=== PATIENT | female | born 1980 | race Caucasian/White ===

== ENCOUNTER 2016-06-04 07:17 | Emergency (ER) | payer MEDICAID ==
[~2016-06-04] VITALS: Ht 170.2 cm; Wt 93.0 kg
[~2016-06-04 07:17] MED LIST: ACET-2178; IBUPROFEN OTC
[2016-06-04] MEDS ORDERED: TRAMADOL 50MG TABLET PO ONE (09:45)
[2016-06-04 11:33] VITALS: BP 131/82
== END 2016-06-04 11:34 | disposition home or self-care (01) ==
LOC: ER 07:43
DX: M54.5 Low back pain (principal); Z88.0 Allergy status to penicillin; Z88.6 Allergy status to analgesic agent; Z98.51 Tubal ligation status; W01.0XXA Fall on same level from slipping, tripping and stumbling without subsequent striking against object, initial encounter; Y93.89 Activity, other specified; Y92.512 Supermarket, store or market as the place of occurrence of the external cause
CPT/HCPCS: 99283; Z7610

== ENCOUNTER 2016-07-16 07:48 | Emergency (ER) | payer MEDICAID ==
[~2016-07-16] VITALS: Ht 165.1 cm; Wt 104.0 kg
[2016-07-16 08:05] VITALS: BP 130/72
[2016-07-16] MEDS ORDERED: ACETAMINOPHEN 325MG TABLET PO ONE (08:30)
== END 2016-07-16 08:41 | disposition home or self-care (01) ==
LOC: ER 08:17
DX: S30.1XXA Contusion of abdominal wall, initial encounter (principal); Z88.0 Allergy status to penicillin; Z98.51 Tubal ligation status; Z88.6 Allergy status to analgesic agent; W10.8XXA Fall (on) (from) other stairs and steps, initial encounter; Y93.89 Activity, other specified; Y92.018 Other place in single-family (private) house as the place of occurrence of the external cause
CPT/HCPCS: 99282

== ENCOUNTER 2016-08-22 14:22 | Emergency (ER) | payer MEDICAID ==
[~2016-08-22] VITALS: Ht 167.6 cm; Wt 104.0 kg
[2016-08-22] MEDS ORDERED: BACITRACIN ZINC OINT UDPKT TOP ONE ×2 (18:30→19:30)
[2016-08-22] MEDS ORDERED: LIDOCAINE HCL 1% 20ML VIAL (Pyxis) INJ INFIL ONE (18:30)
[2016-08-22] MEDS ORDERED: TETANUS, DIPHTHERIA, PERTUSSIS VAC/PF 0.5ML (>7YR OLD) IM ONE (18:30)
[2016-08-22] MEDS ORDERED: HYDROCODONE/ACETAMINOPHEN 5/325MG TABLET PO ONE (19:30)
[2016-08-22 19:58] VITALS: BP 128/74
[2016-08-23] MEDS ORDERED: CLINDAMYCIN HCL 150MG CAPSULE PO SCH
== END 2016-08-22 20:01 | disposition home or self-care (01) ==
LOC: ER 18:01
DX: L03.031 Cellulitis of right toe (principal); Z88.0 Allergy status to penicillin; Z88.6 Allergy status to analgesic agent; Z98.51 Tubal ligation status
CPT/HCPCS: 10060; 90471; 90715; 99283; J3490; X7700; Z7610

== ENCOUNTER 2016-08-28 06:09 | Emergency (ER) | payer MEDICAID ==
[~2016-08-28] VITALS: Ht 167.6 cm; Wt 91.0 kg
[2016-08-28] MEDS ORDERED: FAMOTIDINE 20MG/2ML VIAL IV STA (06:40)
[2016-08-28] MEDS ORDERED: SODIUM CHLORIDE 0.9% 1,000 ML IV ONE (06:40)
[2016-08-28] MEDS ORDERED: ONDANSETRON HCL 4MG/2ML VIAL IV STA (06:40)
[2016-08-28 07:09] LABS: CARBON DIOXIDE 29 mEq/L (21-32); CHLORIDE 104 mEq/L (98-107)
[2016-08-28 07:11] LABS: BASOPHILS % 0.7 % (0.0-2.0); EOSINOPHILS % 0.6 % (0.0-5.0); HEMATOCRIT. 36.4 % (36.0-48.0); HEMOGLOBIN. 12.6 g/dL (12.0-16.0); LYMPHOCYTES % 30.9 % (20.0-50.0); MEAN CORPUSCULAR HEMOGLOBIN 29.9 pg (28.0-32.0); MEAN CORPUSCULAR VOLUME 86.2 fL (81.0-99.0); MEAN PLATELET VOLUME 8.8 fl (7.4-10.4); MONOCYTES % 6.7 % (2.0-8.0); NEUTROPHILS % 61.1 % (40.0-76.0); PLATELET 363 x1000/uL (130-400); RED BLOOD CELL COUNT 4.22 mill/uL (4.2-5.4); RED CELL DISTRIBUTION WIDTH 14.9 % (11.6-14.6)
[2016-08-28 07:12] LABS: GLUCOSE URINE NEGATIVE (NEGATIVE); KETONES URINE NEGATIVE (NEGATIVE); LEUKOCYTE ESTERASE URINE 3+ (NEGATIVE); NITRITE URINE NEGATIVE (NEGATIVE); OCCULT BLOOD URINE 2+ (NEGATIVE); PH URINE 7.5 (4.5-8.0); PROTEIN URINE NEGATIVE (NEGATIVE); SPECIFIC GRAVITY URINE 1.016 (1.005-1.030)
[2016-08-28 07:14] LABS: CLARITY URINE HAZY (CLEAR); COLOR URINE YELLOW (YELLOW)
[2016-08-28 07:20] LABS: *BARBITURATES SCREEN URINE NEGATIVE (NEGATIVE); *BENZODIAZEPINES SCREEN URINE NEGATIVE (NEGATIVE); *COCAINE SCREEN URINE NEGATIVE (NEGATIVE); CANNABINOID URINE SCREEN NEGATIVE (NEGATIVE); METHADONE URINE SCREEN NEGATIVE (NEGATIVE); PHENCYCLIDINE URINE SCREEN NEGATIVE (NEGATIVE)
[2016-08-28 07:31] LABS: *AMPHETAMINES SCREEN URINE PRESUMTIVE POSITIVE (NEGATIVE); OPIATES URINE SCREEN PRESUMTIVE POSITIVE (NEGATIVE)
[2016-08-28] MEDS ORDERED: LEVOFLOXACIN 500MG TABLET PO ONE (08:00)
[2016-08-28 09:18] VITALS: BP 136/80
== END 2016-08-28 09:24 | disposition home or self-care (01) ==
LOC: ER 06:18
DX: N39.0 Urinary tract infection, site not specified (principal); I10 Essential (primary) hypertension; R73.9 Hyperglycemia, unspecified; Z68.32 Body mass index [BMI] 32.0-32.9, adult; E66.9 Obesity, unspecified; F11.10 Opioid abuse, uncomplicated; F15.10 Other stimulant abuse, uncomplicated; Z88.0 Allergy status to penicillin; Z88.6 Allergy status to analgesic agent; Z98.51 Tubal ligation status
CPT/HCPCS: 36415; 80053; 80305; 81001; 81025; 83690; 85025; 96361; 96374; 96375; 99285; J2405; J3490; J7030

== ENCOUNTER 2016-09-11 06:31 | Emergency (ER) | payer MEDICAID ==
[~2016-09-11] VITALS: Ht 167.6 cm; Wt 91.0 kg
[2016-09-11 06:46] VITALS: BP 146/94
[2016-09-11 08:01] LABS: BASOPHILS % 0.3 % (0.0-2.0); EOSINOPHILS % 1.2 % (0.0-5.0); HEMATOCRIT. 35.5 % (36.0-48.0); LYMPHOCYTES % 29.7 % (20.0-50.0); MEAN CORPUSCULAR HEMOGLOBIN 29.1 pg (28.0-32.0); MEAN CORPUSCULAR VOLUME 86.1 fL (81.0-99.0); MONOCYTES % 7.8 % (2.0-8.0); PLATELET 270 x1000/uL (130-400); RED BLOOD CELL COUNT 4.13 mill/uL (4.2-5.4); RED CELL DISTRIBUTION WIDTH 15.3 % (11.6-14.6)
[2016-09-11 08:11] LABS: CARBON DIOXIDE 29 mEq/L (21-32); CHLORIDE 107 mEq/L (98-107)
[2016-09-11] MEDS ORDERED: ACETAMINOPHEN 325MG TABLET PO ONE (08:30)
[2016-09-11 08:41] LABS: CLARITY URINE TURBID (CLEAR); COLOR URINE YELLOW (YELLOW); KETONES URINE NEGATIVE (NEGATIVE); LEUKOCYTE ESTERASE URINE 3+ (NEGATIVE); NITRITE URINE NEGATIVE (NEGATIVE); OCCULT BLOOD URINE 1+ (NEGATIVE); PROTEIN URINE NEGATIVE (NEGATIVE); SPECIFIC GRAVITY URINE 1.011 (1.005-1.030); UROBILINOGEN URINE 0.2 E.U./dL (0.2-1.0)
[2016-09-11 08:53] LABS: *AMPHETAMINES SCREEN URINE NEGATIVE (NEGATIVE); *BARBITURATES SCREEN URINE NEGATIVE (NEGATIVE); *BENZODIAZEPINES SCREEN URINE NEGATIVE (NEGATIVE); *COCAINE SCREEN URINE NEGATIVE (NEGATIVE); CANNABINOID URINE SCREEN NEGATIVE (NEGATIVE); METHADONE URINE SCREEN NEGATIVE (NEGATIVE); PHENCYCLIDINE URINE SCREEN NEGATIVE (NEGATIVE)
[2016-09-11 08:55] LABS: OPIATES URINE SCREEN PRESUMTIVE POSITIVE (NEGATIVE)
== END 2016-09-11 09:30 | disposition home or self-care (01) ==
LOC: ER 08:24
DX: M79.605 Pain in left leg (principal); M79.604 Pain in right leg; N39.0 Urinary tract infection, site not specified; Z88.0 Allergy status to penicillin; Z88.6 Allergy status to analgesic agent; Z98.51 Tubal ligation status
CPT/HCPCS: 36415; 80048; 80305; 81001; 81025; 85025; 99284

== ENCOUNTER 2016-12-30 11:25 | Emergency (ER) | payer MEDICAID ==
[~2016-12-30] VITALS: Ht 167.6 cm; Wt 100.0 kg
[2016-12-30 11:58] VITALS: BP 111/72
== END 2016-12-30 18:30 | disposition left against medical advice (07) ==
LOC: ER 18:13
DX: Z53.21 Procedure and treatment not carried out due to patient leaving prior to being seen by health care provider (principal)

== ENCOUNTER 2017-03-21 09:33 | Emergency (ER) | payer MEDICAID ==
[~2017-03-21] VITALS: Ht 167.6 cm; Wt 91.0 kg
[2017-03-21 10:23] VITALS: BP 128/80
== END 2017-03-21 13:53 | disposition left against medical advice (07) ==
LOC: ER 10:25
DX: Z53.21 Procedure and treatment not carried out due to patient leaving prior to being seen by health care provider (principal)

== ENCOUNTER 2017-04-19 09:08 | Emergency (ER) | payer MEDICAID ==
[~2017-04-19] VITALS: Ht 167.6 cm; Wt 91.0 kg
[2017-04-19] MEDS ORDERED: HYDROCODONE/ACETAMINOPHEN 5/325MG TABLET PO ONE (11:15)
[2017-04-19 12:03] VITALS: BP 164/99
== END 2017-04-19 12:51 | disposition home or self-care (01) ==
LOC: ER 09:13
DX: S20.211A Contusion of right front wall of thorax, initial encounter (principal); Z88.0 Allergy status to penicillin; Z88.6 Allergy status to analgesic agent; V89.2XXA Person injured in unspecified motor-vehicle accident, traffic, initial encounter; Y93.89 Activity, other specified; Y92.89 Other specified places as the place of occurrence of the external cause; Y99.8 Other external cause status
CPT/HCPCS: 71111; 81025; 99284

== ENCOUNTER 2017-04-28 08:54 | Emergency (ER) | payer MEDICAID ==
[~2017-04-28] VITALS: Ht 167.6 cm; Wt 100.0 kg
[2017-04-28 12:00] VITALS: BP 131/87
== END 2017-04-28 13:41 | disposition home or self-care (01) ==
LOC: ER 09:57
DX: Z76.0 Encounter for issue of repeat prescription (principal); Z88.0 Allergy status to penicillin; Z88.6 Allergy status to analgesic agent
CPT/HCPCS: 99281

== ENCOUNTER 2017-06-15 13:10 | Emergency (ER) | payer MEDICAID ==
[~2017-06-15] VITALS: Ht 167.6 cm; Wt 97.0 kg
[2017-06-15] MEDS ORDERED: HYDROCODONE/ACETAMINOPHEN 5/325MG TABLET PO ONE (15:00)
[2017-06-15] MEDS ORDERED: ACETAMINOPHEN 325MG TABLET PO ONE (15:15)
[2017-06-15 15:42] VITALS: BP 135/82
== END 2017-06-15 16:22 | disposition home or self-care (01) ==
LOC: ER 14:23
DX: M41.9 Scoliosis, unspecified (principal); Z88.0 Allergy status to penicillin; Z88.6 Allergy status to analgesic agent
CPT/HCPCS: 99281; Z7610

== ENCOUNTER 2017-09-19 08:16 | Emergency (ER) | payer MEDICAID ==
[~2017-09-19] VITALS: Ht 167.6 cm; Wt 91.0 kg
[2017-09-19] MEDS ORDERED: TRAMADOL 50MG TABLET PO ONE (12:00)
[2017-09-19 14:15] VITALS: BP 138/92
== END 2017-09-19 14:16 | disposition home or self-care (01) ==
LOC: ER 08:16
DX: S39.012A Strain of muscle, fascia and tendon of lower back, initial encounter (principal); X50.0XXA Overexertion from strenuous movement or load, initial encounter; Y93.89 Activity, other specified; Y92.098 Other place in other non-institutional residence as the place of occurrence of the external cause; Z88.0 Allergy status to penicillin; Z88.6 Allergy status to analgesic agent; R03.0 Elevated blood-pressure reading, without diagnosis of hypertension
CPT/HCPCS: 81025; 99283

== ENCOUNTER 2017-09-27 07:29 | Emergency (ER) | payer MEDICAID ==
[~2017-09-27] VITALS: Ht 167.6 cm; Wt 91.0 kg
[2017-09-27] MEDS ORDERED: TRAMADOL 50MG TABLET PO ONE (10:30)
[2017-09-27 10:39] VITALS: BP 130/86
== END 2017-09-27 12:06 | disposition home or self-care (01) ==
LOC: ER 07:29
DX: S16.1XXA Strain of muscle, fascia and tendon at neck level, initial encounter (principal); M41.9 Scoliosis, unspecified; Z88.0 Allergy status to penicillin; Z98.890 Other specified postprocedural states; Z90.710 Acquired absence of both cervix and uterus; Z88.6 Allergy status to analgesic agent; X50.0XXA Overexertion from strenuous movement or load, initial encounter; Y93.89 Activity, other specified; Y92.89 Other specified places as the place of occurrence of the external cause; Y99.8 Other external cause status
CPT/HCPCS: 71101; 72050; 81025; 99284

== ENCOUNTER 2017-10-31 16:16 | Emergency (ER) | payer MEDICAID, OTHER ==
[~2017-10-31] VITALS: Ht 167.6 cm; Wt 90.0 kg
[2017-10-31 16:33] VITALS: BP 116/77
[2017-10-31] MEDS ORDERED: ACETAMINOPHEN 325MG TABLET PO ONE (18:45)
== END 2017-10-31 18:52 | disposition home or self-care (01) ==
LOC: ER 16:16
DX: S93.401A Sprain of unspecified ligament of right ankle, initial encounter (principal); X58.XXXA Exposure to other specified factors, initial encounter; Y93.89 Activity, other specified; Y92.89 Other specified places as the place of occurrence of the external cause; R03.0 Elevated blood-pressure reading, without diagnosis of hypertension; W01.0XXA Fall on same level from slipping, tripping and stumbling without subsequent striking against object, initial encounter
CPT/HCPCS: 73610; 99284

== ENCOUNTER 2018-03-31 08:20 | Emergency (ER) | payer MEDICAID, OTHER ==
[~2018-03-31] VITALS: Ht 167.6 cm; Wt 91.0 kg
[2018-03-31] MEDS ORDERED: HYDROCODONE/ACETAMINOPHEN 5/325MG TABLET PO ONE (10:00)
[2018-03-31 10:45] VITALS: BP 126/75
== END 2018-03-31 10:51 | disposition home or self-care (01) ==
LOC: ER 08:20
DX: M54.89 Other dorsalgia (principal); Z88.0 Allergy status to penicillin; Z88.6 Allergy status to analgesic agent; Z90.710 Acquired absence of both cervix and uterus
CPT/HCPCS: 99283

== ENCOUNTER 2018-04-17 17:39 | Emergency (ER) | payer MEDICAID ==
[~2018-04-17] VITALS: Ht 167.6 cm; Wt 91.0 kg
[2018-04-18] MEDS ORDERED: HYDROCODONE/ACETAMINOPHEN 5/325MG TABLET PO ONE (00:45)
[2018-04-18 02:24] VITALS: BP 132/86
== END 2018-04-18 02:29 | disposition home or self-care (01) ==
LOC: ER 17:39
DX: M54.40 Lumbago with sciatica, unspecified side (principal); Z98.890 Other specified postprocedural states; Z88.0 Allergy status to penicillin; Z88.6 Allergy status to analgesic agent
CPT/HCPCS: 72100; 81025; 99283

== ENCOUNTER 2018-04-20 10:19 | Emergency (ER) | payer OTHER, MEDICAID ==
[~2018-04-20] VITALS: Ht 167.6 cm; Wt 90.0 kg
[2018-04-20 10:30] VITALS: BP 126/74
== END 2018-04-20 12:43 | disposition home or self-care (01) ==
LOC: ER 10:19
DX: J06.9 Acute upper respiratory infection, unspecified (principal); Z88.0 Allergy status to penicillin; Z88.6 Allergy status to analgesic agent; Z98.890 Other specified postprocedural states
CPT/HCPCS: 99282

== ENCOUNTER 2018-04-23 09:15 | Emergency (ER) | payer MEDICAID ==
[~2018-04-23] VITALS: Ht 167.6 cm; Wt 91.0 kg
[2018-04-23] MEDS ORDERED: ACETAMINOPHEN 325MG TABLET PO ONE (10:30)
[2018-04-23 12:41] VITALS: BP 108/57
== END 2018-04-23 12:43 | disposition home or self-care (01) ==
LOC: ER 09:15
DX: M25.512 Pain in left shoulder (principal); M79.604 Pain in right leg; W01.0XXA Fall on same level from slipping, tripping and stumbling without subsequent striking against object, initial encounter; Y93.E8 Activity, other personal hygiene; Y92.9 Unspecified place or not applicable; Z88.0 Allergy status to penicillin; Z88.6 Allergy status to analgesic agent
CPT/HCPCS: 73030; 73502; 73552; 73562; 73590; 81025; 99283

== ENCOUNTER 2018-05-06 15:10 | Emergency (ER) | payer MEDICAID ==
[~2018-05-06] VITALS: Ht 167.6 cm; Wt 91.0 kg
[2018-05-06] MEDS ORDERED: HYDROCODONE/ACETAMINOPHEN 5/325MG TABLET PO ONE (18:00)
[2018-05-06 18:10] VITALS: BP 106/63
== END 2018-05-06 18:35 | disposition home or self-care (01) ==
LOC: ER 15:10
DX: S39.012A Strain of muscle, fascia and tendon of lower back, initial encounter (principal); S29.012A Strain of muscle and tendon of back wall of thorax, initial encounter; W18.39XA Other fall on same level, initial encounter; Y93.89 Activity, other specified; Y92.89 Other specified places as the place of occurrence of the external cause; Y99.8 Other external cause status; Z88.0 Allergy status to penicillin; Z88.6 Allergy status to analgesic agent; Z98.890 Other specified postprocedural states
CPT/HCPCS: 99283

== ENCOUNTER 2018-06-16 09:01 | Emergency (ER) | payer MEDICAID ==
[~2018-06-16] VITALS: Ht 167.6 cm; Wt 95.0 kg
[2018-06-16] MEDS ORDERED: ACETAMINOPHEN 325MG TABLET PO ONE (09:45)
[2018-06-16] MEDS ORDERED: HYDROCODONE/ACETAMINOPHEN 5/325MG TABLET PO ONE (10:15)
[2018-06-16 11:20] VITALS: BP 145/82
== END 2018-06-16 11:47 | disposition home or self-care (01) ==
LOC: ER 09:01
DX: S90.01XA Contusion of right ankle, initial encounter (principal); Z88.6 Allergy status to analgesic agent; Z88.0 Allergy status to penicillin; Z98.51 Tubal ligation status; X58.XXXA Exposure to other specified factors, initial encounter; Y93.89 Activity, other specified; Y92.89 Other specified places as the place of occurrence of the external cause
CPT/HCPCS: 73610; 73630; 99283

== ENCOUNTER 2018-06-18 10:23 | Emergency (ER) | payer MEDICAID ==
[~2018-06-18] VITALS: Ht 167.6 cm; Wt 91.0 kg
[2018-06-18 10:44] VITALS: BP 118/74
[2018-06-18] MEDS ORDERED: ACETAMINOPHEN 325MG TABLET PO ONE (14:45)
== END 2018-06-18 14:55 | disposition home or self-care (01) ==
LOC: ER 10:23
DX: S93.401A Sprain of unspecified ligament of right ankle, initial encounter (principal); X58.XXXA Exposure to other specified factors, initial encounter; Y93.9 Activity, unspecified; Z88.0 Allergy status to penicillin; Z88.6 Allergy status to analgesic agent; Z98.51 Tubal ligation status
CPT/HCPCS: 99282

== ENCOUNTER 2018-07-15 09:21 | Emergency (ER) | payer MEDICAID ==
[~2018-07-15] VITALS: Ht 167.6 cm; Wt 91.0 kg
[2018-07-15] MEDS ORDERED: HYDROCODONE/ACETAMINOPHEN 5/325MG TABLET PO ONE (09:45)
[2018-07-15 10:12] VITALS: BP 148/87
== END 2018-07-15 10:23 | disposition home or self-care (01) ==
LOC: ER 09:21
DX: M54.2 Cervicalgia (principal); Z98.51 Tubal ligation status; Z88.0 Allergy status to penicillin; Z88.6 Allergy status to analgesic agent
CPT/HCPCS: 99283

== ENCOUNTER 2018-07-16 10:43 | Emergency (ER) | payer MEDICAID ==
[~2018-07-16] VITALS: Ht 167.6 cm; Wt 91.0 kg
[2018-07-16 11:03] VITALS: BP 169/105
== END 2018-07-17 06:42 | disposition left against medical advice (07) ==
LOC: ER 10:43
DX: M25.511 Pain in right shoulder (principal); Z53.21 Procedure and treatment not carried out due to patient leaving prior to being seen by health care provider

== ENCOUNTER 2018-10-15 08:51 | Emergency (ER) | payer MEDICAID ==
[~2018-10-15] VITALS: Ht 167.6 cm; Wt 119.0 kg
[2018-10-15] MEDS ORDERED: ACETAMINOPHEN 325MG TABLET PO ONE (09:45)
[2018-10-15] MEDS ORDERED: HYDROCODONE/ACETAMINOPHEN 5/325MG TABLET PO ONE (10:30)
[2018-10-15 10:36] VITALS: BP 136/91
== END 2018-10-15 10:37 | disposition home or self-care (01) ==
LOC: ER 08:51
DX: R51 Headache (principal); R05 Cough; Z88.0 Allergy status to penicillin; Z88.6 Allergy status to analgesic agent; Z98.51 Tubal ligation status
CPT/HCPCS: 81025; 99282

== ENCOUNTER 2018-12-21 06:29 | Emergency (ER) | payer MEDICAID ==
[~2018-12-21] VITALS: Ht 167.6 cm; Wt 91.0 kg
[~2018-12-21 06:29] MED LIST changes: -ACET-2178; +TOPUD
[2018-12-21] MEDS ORDERED: ACETAMINOPHEN 500MG TABLET PO ONE (08:45)
[2018-12-21] MEDS ORDERED: ONDANSETRON HCL 4MG/2ML INJ IM ONE (08:45)
[2018-12-21 10:12] VITALS: BP 117/85
== END 2018-12-21 10:32 | disposition home or self-care (01) ==
LOC: ER 06:29
DX: R11.2 Nausea with vomiting, unspecified (principal); R10.84 Generalized abdominal pain; Z98.890 Other specified postprocedural states; Z98.51 Tubal ligation status; Z88.0 Allergy status to penicillin; Z88.6 Allergy status to analgesic agent
CPT/HCPCS: 96372; 99283; J2405

== ENCOUNTER 2018-12-25 09:09 | Emergency (ER) | payer MEDICAID ==
[~2018-12-25] VITALS: Ht 167.6 cm; Wt 91.0 kg
[2018-12-25] MEDS ORDERED: HYDROCODONE/ACETAMINOPHEN 5/325MG TABLET PO ONE (10:45)
[2018-12-25 11:17] VITALS: BP 130/75
== END 2018-12-25 11:19 | disposition home or self-care (01) ==
LOC: ER 09:09
DX: S39.012A Strain of muscle, fascia and tendon of lower back, initial encounter (principal); S16.1XXA Strain of muscle, fascia and tendon at neck level, initial encounter; X50.0XXA Overexertion from strenuous movement or load, initial encounter; X50.1XXA Overexertion from prolonged static or awkward postures, initial encounter; Y93.89 Activity, other specified; Y92.9 Unspecified place or not applicable; Z88.0 Allergy status to penicillin; Z88.6 Allergy status to analgesic agent; Z98.51 Tubal ligation status
CPT/HCPCS: 99282; Z7610

== ENCOUNTER 2018-12-26 08:56 | Emergency (ER) | payer MEDICAID ==
[~2018-12-26] VITALS: Ht 167.6 cm; Wt 91.0 kg
[2018-12-26 09:59] VITALS: BP 151/83
[2018-12-26] MEDS ORDERED: TRAMADOL 50MG TABLET PO ONE (10:00)
== END 2018-12-26 10:03 | disposition home or self-care (01) ==
LOC: ER 08:56
DX: M54.5 Low back pain (principal); Z98.51 Tubal ligation status; Z88.0 Allergy status to penicillin; Z88.6 Allergy status to analgesic agent
CPT/HCPCS: 99283

== ENCOUNTER 2019-02-05 09:00 | Emergency (ER) | payer MEDICAID ==
[~2019-02-05] VITALS: Ht 167.6 cm; Wt 91.0 kg
[2019-02-05] MEDS ORDERED: ACETAMINOPHEN 500MG TABLET PO ONE (10:30)
[2019-02-05 11:39] VITALS: BP 129/83
[2019-02-05] MEDS ORDERED: IBUPROFEN 600MG TABLET PO ONE (11:45)
== END 2019-02-05 12:05 | disposition home or self-care (01) ==
LOC: ER 09:05
DX: M25.471 Effusion, right ankle (principal); Z88.0 Allergy status to penicillin; Z98.51 Tubal ligation status
CPT/HCPCS: 93971; 99284

== ENCOUNTER 2019-04-21 07:41 | Emergency (ER) | payer MEDICAID ==
[~2019-04-21] VITALS: Ht 167.6 cm; Wt 108.0 kg
[2019-04-21] MEDS ORDERED: ACETAMINOPHEN 325MG TABLET PO ONE (08:30)
[2019-04-21 10:01] VITALS: BP 122/75
== END 2019-04-21 10:04 | disposition home or self-care (01) ==
LOC: ER 07:41
DX: J06.9 Acute upper respiratory infection, unspecified (principal); Z88.0 Allergy status to penicillin
CPT/HCPCS: 87804; 99283

== ENCOUNTER 2019-05-19 09:14 | Emergency (ER) | payer MEDICAID ==
[~2019-05-19] VITALS: Ht 177.8 cm; Wt 88.0 kg
[2019-05-19 10:05] VITALS: BP 110/70
== END 2019-05-19 15:17 | disposition left against medical advice (07) ==
LOC: ER 09:14
DX: R05 Cough (principal); Z53.21 Procedure and treatment not carried out due to patient leaving prior to being seen by health care provider

== ENCOUNTER 2019-09-17 08:42 | Emergency (ER) | payer MEDICAID ==
[~2019-09-17] VITALS: Ht 167.6 cm; Wt 108.0 kg
[2019-09-17] MEDS ORDERED: ACETAMINOPHEN 325MG TABLET PO ONE (11:30)
[2019-09-17 11:57] VITALS: BP 137/78
== END 2019-09-17 12:02 | disposition home or self-care (01) ==
LOC: ER 08:42
DX: S93.409A Sprain of unspecified ligament of unspecified ankle, initial encounter (principal); W01.0XXA Fall on same level from slipping, tripping and stumbling without subsequent striking against object, initial encounter; Y93.9 Activity, unspecified; Y92.9 Unspecified place or not applicable; Z98.51 Tubal ligation status; Z88.0 Allergy status to penicillin; Z88.6 Allergy status to analgesic agent
CPT/HCPCS: 73610; 99283

== ENCOUNTER 2020-01-14 11:17 | Emergency (ER) | payer MEDICAID ==
[~2020-01-14] VITALS: Ht 167.6 cm; Wt 91.0 kg
[2020-01-14 11:33] VITALS: BP 171/109
== END 2020-01-14 13:47 | disposition left against medical advice (07) ==
LOC: ER 11:17
DX: Z53.21 Procedure and treatment not carried out due to patient leaving prior to being seen by health care provider (principal); Z88.0 Allergy status to penicillin; Z98.51 Tubal ligation status

== ENCOUNTER 2020-08-23 09:55 | Emergency (ER) | payer MEDICAID ==
[~2020-08-23] VITALS: Ht 167.6 cm; Wt 90.0 kg
[2020-08-23] MEDS ORDERED: LIDOCAINE 5% PATCH TOP SCH (11:00)
[2020-08-23] MEDS ORDERED: ACETAMINOPHEN WITH CODEINE 300/30MG TABLET PO ONE (11:00)
[2020-08-23] MEDS ORDERED: LIDO1ADH5 TP (11:55)
[2020-08-23] MEDS ORDERED: TOPUD MT (11:55)
[2020-08-23 12:22] VITALS: BP 155/93
== END 2020-08-23 12:23 | disposition home or self-care (01) ==
LOC: ER 09:55
DX: R07.81 Pleurodynia (principal); Z88.0 Allergy status to penicillin; Z88.6 Allergy status to analgesic agent; Z98.51 Tubal ligation status; Z98.890 Other specified postprocedural states; W01.0XXA Fall on same level from slipping, tripping and stumbling without subsequent striking against object, initial encounter; Y93.89 Activity, other specified; Y92.89 Other specified places as the place of occurrence of the external cause; Y99.8 Other external cause status
CPT/HCPCS: 71101; 99283

== ENCOUNTER 2020-11-02 09:59 | Emergency (ER) | payer MEDICAID ==
[~2020-11-02] VITALS: Ht 167.6 cm; Wt 91.0 kg
[~2020-11-02 09:59] MED LIST changes: +LIDO1ADH5 TP; +TOPUD MT
[2020-11-02] MEDS ORDERED: ACETAMINOPHEN 325MG TABLET PO ONE (10:45)
[2020-11-02] MEDS ORDERED: SKEL800 MT (12:16)
[2020-11-02] MEDS ORDERED: TRAM50TA3 MT (12:19)
[2020-11-02 12:49] VITALS: BP 136/85
== END 2020-11-02 12:51 | disposition home or self-care (01) ==
LOC: ER 09:59
DX: S29.012A Strain of muscle and tendon of back wall of thorax, initial encounter (principal); S39.012A Strain of muscle, fascia and tendon of lower back, initial encounter; W10.8XXA Fall (on) (from) other stairs and steps, initial encounter; Y93.01 Activity, walking, marching and hiking; Y92.9 Unspecified place or not applicable; Z88.0 Allergy status to penicillin; Z88.6 Allergy status to analgesic agent; Z98.51 Tubal ligation status
CPT/HCPCS: 72070; 72100; 99284

== ENCOUNTER 2020-11-11 09:23 | Emergency (ER) | payer MEDICAID ==
[~2020-11-11] VITALS: Ht 167.6 cm; Wt 91.0 kg
[~2020-11-11 09:23] MED LIST changes: +SKEL800 MT; +TRAM50TA3 MT
[2020-11-11 09:34] VITALS: BP 151/95
[2020-11-12] MEDS ORDERED: T3 PO (07:41)
== END 2020-11-11 11:22 | disposition left against medical advice (07) ==
LOC: ER 10:17
DX: M54.9 Dorsalgia, unspecified (principal); Z53.21 Procedure and treatment not carried out due to patient leaving prior to being seen by health care provider

== ENCOUNTER 2020-11-12 06:34 | Emergency (ER) | payer MEDICAID ==
[~2020-11-12] VITALS: Ht 167.6 cm; Wt 90.0 kg
[2020-11-12] MEDS ORDERED: OXYCODONE HCL/ACETAMINOPHEN 5/325MG TABLET PO ONE (07:00)
[2020-11-12] MEDS ORDERED: T3 PO (07:41)
[2020-11-12 07:42] VITALS: BP 131/94
== END 2020-11-12 08:00 | disposition home or self-care (01) ==
LOC: ER 06:34
DX: M54.9 Dorsalgia, unspecified (principal); Z88.0 Allergy status to penicillin; Z88.6 Allergy status to analgesic agent; Z98.51 Tubal ligation status; Z98.890 Other specified postprocedural states
CPT/HCPCS: 72100; 99283

== ENCOUNTER 2020-11-25 09:03 | Emergency (ER) | payer MEDICAID ==
[~2020-11-25] VITALS: Ht 167.6 cm; Wt 90.0 kg
[~2020-11-25 09:03] MED LIST changes: +T3 PO
[2020-11-25] MEDS ORDERED: ACETAMINOPHEN 650MG/20.3ML UDC PO ONE (10:30)
[2020-11-25] MEDS ORDERED: MELOXICAM 7.5MG TABLET PO ONE (10:30)
[2020-11-25] MEDS ORDERED: ACETAMINOPHEN 325MG TABLET PO ONE (10:45)
[2020-11-25] MEDS ORDERED: TOPUD MT ×2 (11:20)
[2020-11-25] MEDS ORDERED: MELO-104 MT (11:20)
[2020-11-25] MEDS ORDERED: T3 PO (11:33)
[2020-11-25 11:44] VITALS: BP 140/58
== END 2020-11-25 11:45 | disposition home or self-care (01) ==
LOC: ER 09:03
DX: G89.29 Other chronic pain (principal); M54.5 Low back pain; Z88.0 Allergy status to penicillin; Z88.6 Allergy status to analgesic agent; Z98.51 Tubal ligation status; Z79.899 Other long term (current) drug therapy
CPT/HCPCS: 99283

== ENCOUNTER 2021-01-29 10:37 | Emergency (ER) | payer MEDICAID ==
[~2021-01-29] VITALS: Ht 167.6 cm; Wt 91.0 kg
[~2021-01-29 10:37] MED LIST changes: +MELO-104 MT
[2021-01-29 10:56] VITALS: BP_DIAS 82
[2021-01-29] MEDS ORDERED: ACETAMINOPHEN WITH CODEINE 300/30MG TABLET PO ONE (11:15)
[2021-01-29] MEDS ORDERED: ACET-2708 MT (12:34)
[2021-01-29 12:46] VITALS: BP_SYST 141
== END 2021-01-29 13:40 ==
LOC: ER 10:37
DX: S20.211A Contusion of right front wall of thorax, initial encounter (principal); W10.8XXA Fall (on) (from) other stairs and steps, initial encounter; Y93.89 Activity, other specified; Y92.89 Other specified places as the place of occurrence of the external cause; Y99.8 Other external cause status; Z98.51 Tubal ligation status; Z79.899 Other long term (current) drug therapy; Z88.0 Allergy status to penicillin
CPT/HCPCS: 71101; 81025; 99283; Z7610

== ENCOUNTER 2021-02-10 09:46 | Emergency (ER) | payer MEDICAID ==
[~2021-02-10] VITALS: Ht 167.6 cm; Wt 93.0 kg
[~2021-02-10 09:46] MED LIST changes: +ACET-2708 MT
[2021-02-10 09:49] VITALS: BP 149/100
[2021-02-10] MEDS ORDERED: ACETAMINOPHEN 325MG TABLET PO ONE (10:30)
[2021-02-10] MEDS ORDERED: IBUPROFEN 400MG TABLET PO ONE (10:30)
[2021-02-10] MEDS ORDERED: LIDOCAINE 5% PATCH TOP SCH (10:30)
[2021-02-10] MEDS ORDERED: METHOCARBAMOL 500MG TABLET PO ONE (10:30)
[2021-02-10] MEDS ORDERED: T3 PO (10:31)
== END 2021-02-10 11:40 | disposition home or self-care (01) ==
LOC: ER 09:46
DX: G89.29 Other chronic pain (principal); M54.50 Low back pain, unspecified; Z88.0 Allergy status to penicillin; Z88.6 Allergy status to analgesic agent; Z79.899 Other long term (current) drug therapy; Z98.51 Tubal ligation status
CPT/HCPCS: 99283

== ENCOUNTER 2023-07-16 11:20 | Emergency (ER) | payer MEDICAID ==
[~2023-07-16] VITALS: Ht 167.6 cm; Wt 105.0 kg
[2023-07-16 11:36] VITALS: O2SAT 98
[2023-07-16] MEDS: GLUCAGON,HUMAN RECOMBINANT 1MG/VIAL IM ONE (16:29)
[2023-07-16] MEDS: ONDANSETRON 4MG ODT PO ONE (18:05)
[2023-07-16 18:16] VITALS: BP 144/88; PULSE 89; RESP 20; TEMP 98
== END 2023-07-16 18:39 | disposition home or self-care (01) ==
LOC: ER 11:20
DX: R09.A2 Foreign body sensation, throat (principal); Z98.890 Other specified postprocedural states; Z88.0 Allergy status to penicillin; Z88.6 Allergy status to analgesic agent
CPT/HCPCS: 99283; 96372; J1610; Q0162

== ENCOUNTER 2023-10-09 07:40 | Emergency (ER) | payer MEDICAID ==
[~2023-10-09] VITALS: Ht 167.6 cm; Wt 136.1 kg
[2023-10-09 07:55] VITALS: O2SAT 100
[2023-10-09] MEDS: ACETAMINOPHEN 500MG TABLET PO ONE (08:29)
[2023-10-09] MEDS ORDERED: TOPUD MT (09:25)
[2023-10-09 10:36] VITALS: BP 147/95; PULSE 68; RESP 18; TEMP 98.7
== END 2023-10-09 10:40 | disposition home or self-care (01) ==
LOC: ER 07:40
DX: M79.605 Pain in left leg (principal); M54.9 Dorsalgia, unspecified; J45.909 Unspecified asthma, uncomplicated; Z98.51 Tubal ligation status; Z98.890 Other specified postprocedural states; Z88.0 Allergy status to penicillin; Z88.6 Allergy status to analgesic agent
CPT/HCPCS: 72131; 73560; 81025; 99284

== ENCOUNTER 2023-11-04 08:23 | Emergency (ER) | payer MEDICAID ==
[~2023-11-04] VITALS: Ht 172.7 cm; Wt 105.0 kg
[2023-11-04 08:35] VITALS: BP 164/105; PULSE 84; RESP 18; TEMP 98.1; O2SAT 98
[2023-11-04] MEDS: GLUCAGON,HUMAN RECOMBINANT 1MG/VIAL IM ONE (09:15)
[2023-11-04 09:35] LABS: BASOPHILS % 0.6 % (0.0-2.0); EOSINOPHILS % 1.7 % (0.0-5.0); HEMATOCRIT. 37.5 % (36.0-48.0); HEMOGLOBIN. 12.5 g/dL (12.0-16.0); LYMPHOCYTES % 16.6 % (20.0-50.0); MEAN CORPUSCULAR HEMOGLOBIN 30.3 pg (28.0-32.0); MEAN CORPUSCULAR HGB CONC 33.4 g/dL (31.0-37.0); MEAN CORPUSCULAR VOLUME 90.7 fL (81.0-99.0); MEAN PLATELET VOLUME 8.1 fl (7.4-10.4); NEUTROPHILS % 76.1 % (40.0-76.0); PLATELET 379 x1000/uL (130-400); RED BLOOD CELL COUNT 4.14 mill/uL (4.2-5.4); RED CELL DISTRIBUTION WIDTH 14.8 % (11.6-14.6); WHITE BLOOD COUNT 7.3 x1000/uL (4.5-11.0)
[2023-11-04 09:53] LABS: CHLORIDE 105 mEq/L (98-107); SODIUM 139 mEq/L (136-145)
[2023-11-04 09:54] LABS: CALCIUM 9.6 mg/dL (8.7-10.4); CARBON DIOXIDE 30 mEq/L (21-32); HCG SCREEN INDETERMINATE
[2023-11-04 09:59] LABS: CREATININE 0.7 mg/dL (0.6-1.0); GLUCOSE 100 mg/dL (70-105); UREA NITROGEN BLOOD 8 mg/dL (9-23)
[2023-11-04 10:01] LABS: ALANINE AMINOTRANSFERASE 13 IU/L (10-49); ALBUMIN 4.4 g/dL (3.2-4.8); ASPARTATE AMINOTRANSFERASE 15 IU/L (<34); BILIRUBIN TOTAL 0.8 mg/dL (0.1-1.0)
[2023-11-04 10:02] LABS: PROTEIN TOTAL 7.3 g/dL (6.0-8.3)
[2023-11-04] MEDS: ONDANSETRON 4MG ODT PO ONE (10:54)
== END 2023-11-04 10:52 | disposition left against medical advice (07) ==
LOC: ER 08:23
DX: R09.A9 Foreign body sensation, other site (principal); J45.909 Unspecified asthma, uncomplicated; Z98.51 Tubal ligation status; Z98.890 Other specified postprocedural states; Z88.0 Allergy status to penicillin; Z88.6 Allergy status to analgesic agent; Z79.899 Other long term (current) drug therapy
CPT/HCPCS: 80053; 84703; 84702; 85025; 36415; 96372; 99283; Q0162; J1610; Z7610 ×2

== ENCOUNTER 2024-09-06 17:06 | Emergency (ER) | payer MEDICAID ==
[~2024-09-06] VITALS: Ht 167.6 cm; Wt 105.0 kg
[2024-09-06 17:39] VITALS: TEMP 36.8; O2SAT 99
[2024-09-06] MEDS: ACETAMINOPHEN 500MG TABLET PO ONE (18:51)
[2024-09-06] MEDS ORDERED: T3 PO ×2 (18:57→19:02)
[2024-09-06] MEDS ORDERED: HYDR-4797 MT (20:28)
[2024-09-06 20:44] VITALS: BP 143/91; PULSE 85; RESP 18; O2SAT 95
[2024-09-06] MEDS ORDERED: HYDR-4001 MT (21:58)
== END 2024-09-06 20:42 | disposition home or self-care (01) ==
LOC: ER 17:06
DX: M54.50 Low back pain, unspecified (principal); G89.29 Other chronic pain; J45.909 Unspecified asthma, uncomplicated; Z98.51 Tubal ligation status; Z88.6 Allergy status to analgesic agent; Z88.0 Allergy status to penicillin; Z76.0 Encounter for issue of repeat prescription; Z79.1 Long term (current) use of non-steroidal anti-inflammatories (NSAID); Z79.899 Other long term (current) drug therapy; Z98.890 Other specified postprocedural states
CPT/HCPCS: 99282

== ENCOUNTER 2024-09-11 13:14 | Emergency (ER) | payer MEDICAID ==
[~2024-09-11] VITALS: Ht 167.6 cm; Wt 91.0 kg
[~2024-09-11 13:14] MED LIST changes: +HYDR-4001 MT
[2024-09-11 13:18] VITALS: O2SAT 99
[2024-09-11] MEDS: HYDROCODONE/ACETAMINOPHEN 5/325MG TABLET PO ONE (14:09)
[2024-09-11 14:12] VITALS: BP 142/75; PULSE 93; RESP 16; TEMP 36.7; O2SAT 100
== END 2024-09-11 14:19 | disposition home or self-care (01) ==
LOC: ER 13:14
DX: G89.29 Other chronic pain (principal); M54.50 Low back pain, unspecified; J45.909 Unspecified asthma, uncomplicated; Z76.0 Encounter for issue of repeat prescription; Z98.51 Tubal ligation status; Z98.890 Other specified postprocedural states; Z88.0 Allergy status to penicillin; Z88.6 Allergy status to analgesic agent
CPT/HCPCS: 99283

== ENCOUNTER 2024-09-16 09:38 | Emergency (ER) | payer MEDICAID ==
[~2024-09-16] VITALS: Ht 167.6 cm; Wt 91.0 kg
[2024-09-16 10:21] VITALS: O2SAT 99
[2024-09-16] MEDS ORDERED: ACET-2708 MT (10:36)
[2024-09-16] MEDS ORDERED: LIDO-53 TP (10:36)
[2024-09-16] MEDS: HYDROCODONE/ACETAMINOPHEN 5/325MG TABLET PO ONE (10:41)
[2024-09-16] MEDS: LIDOCAINE 5% PATCH TOP SCH (10:42)
[2024-09-16 11:01] VITALS: BP 130/87; PULSE 70; RESP 16; TEMP 36.7; O2SAT 99
== END 2024-09-16 11:02 | disposition home or self-care (01) ==
LOC: ER 09:38
DX: G89.29 Other chronic pain (principal); M54.9 Dorsalgia, unspecified; J45.909 Unspecified asthma, uncomplicated; Z76.0 Encounter for issue of repeat prescription; Z88.6 Allergy status to analgesic agent; Z88.0 Allergy status to penicillin; Z79.899 Other long term (current) drug therapy; Z98.51 Tubal ligation status; Z98.890 Other specified postprocedural states
CPT/HCPCS: 99283

== ENCOUNTER 2024-10-08 15:51 | Emergency (ER) | payer MEDICAID ==
[~2024-10-08] VITALS: Ht 167.6 cm; Wt 92.0 kg
[~2024-10-08 15:51] MED LIST changes: +LIDO-53 TP
[2024-10-08 16:12] VITALS: O2SAT 100
[2024-10-08] MEDS: TRAMADOL 50MG TABLET PO ONE (19:15)
[2024-10-08 19:56] VITALS: BP 173/95; PULSE 63; RESP 18; TEMP 36.7; O2SAT 100
== END 2024-10-08 19:58 | disposition home or self-care (01) ==
LOC: ER 15:51
DX: S93.601A Unspecified sprain of right foot, initial encounter (principal); J45.909 Unspecified asthma, uncomplicated; Z98.890 Other specified postprocedural states; Z79.899 Other long term (current) drug therapy; X58.XXXA Exposure to other specified factors, initial encounter; Y93.89 Activity, other specified; Y92.89 Other specified places as the place of occurrence of the external cause; Y99.8 Other external cause status
CPT/HCPCS: 73630; 99283